=== PATIENT | female | born 1995 | race Caucasian/White ===

== ENCOUNTER 2018-11-10 17:33 | Emergency (ER) | payer OTHER ==
[~2018-11-10] VITALS: Ht 165.1 cm; Wt 104.3 kg
[2018-11-10 17:40] VITALS: BP 155/101
[2018-11-10] MEDS ORDERED: FLEXERIL PO (17:57)
[2018-11-10] MEDS ORDERED: IBUPROFEN 800800 M1 PO (17:57)
[2018-11-10] MEDS ORDERED: NORCO 5-325 TA1 EAC1 PO (17:57)
[2018-11-10] MEDS ORDERED: PERIDEX15 ML SWISH&SPIT (17:57)
== END 2018-11-10 18:10 | disposition home or self-care (01) ==
LOC: M.ERS 17:33
DX: K05.10 Chronic gingivitis, plaque induced (principal); M26.621 Arthralgia of right temporomandibular joint; F17.210 Nicotine dependence, cigarettes, uncomplicated; Z88.6 Allergy status to analgesic agent

== ENCOUNTER 2019-03-16 15:19 | Emergency (ER) | payer OTHER ==
[~2019-03-16] VITALS: Ht 165.1 cm; Wt 104.3 kg
[~2019-03-16 15:19] MED LIST: FLEXERIL PO; IBUPROFEN 800800 M1 PO; NORCO 5-325 TA1 EAC1 PO; PERIDEX15 ML SWISH&SPIT
[2019-03-16] MEDS ORDERED: IBUPROFEN 800800 M1 PO (16:13)
[2019-03-16] MEDS ORDERED: FLEXERIL PO (16:13)
[2019-03-16] MEDS ORDERED: NORCO 5-325 TA1 EAC1 PO (16:13)
[2019-03-16 16:49] VITALS: BP 124/75
== END 2019-03-16 16:50 | disposition home or self-care (01) ==
LOC: M.ERS 15:19
DX: S39.012A Strain of muscle, fascia and tendon of lower back, initial encounter (principal); F17.210 Nicotine dependence, cigarettes, uncomplicated; Z90.49 Acquired absence of other specified parts of digestive tract; Z98.890 Other specified postprocedural states; Z87.442 Personal history of urinary calculi; Z98.51 Tubal ligation status; Z88.6 Allergy status to analgesic agent; X58.XXXA Exposure to other specified factors, initial encounter; Y93.89 Activity, other specified; Y92.89 Other specified places as the place of occurrence of the external cause; Y99.8 Other external cause status

== ENCOUNTER 2019-07-29 01:24 | Emergency (ER) | payer OTHER ==
[~2019-07-29] VITALS: Ht 165.1 cm; Wt 104.3 kg
[2019-07-29 02:07] LABS: URINE BILIRUBIN NEGATIVE (Negative); URINE BLOOD NEGATIVE (Negative); URINE CLARITY CLEAR; URINE COLOR YELLOW; URINE GLUCOSE-RANDOM NEGATIVE (Negative); URINE KETONES NEGATIVE (Negative); URINE LEUKOCYTES-REFLEX NEGATIVE (Negative); URINE PROTEIN NEGATIVE (Negative); URINE SPECIFIC GRAVITY 1.025 (1.005-1.030); URINE UROBILINOGEN 0.2 E.U./dl (0.2-1.0)
[2019-07-29 02:09] LABS: URINE NITRITE-REFLEX POSITIVE (Negative)
[2019-07-29 02:32] LABS: SQUAMOUS 4-10 Moderate /LPF (0-3)
[2019-07-29 02:33] LABS: BACTERIA-REFLEX >30 Many /HPF (None Seen); CASTS None Seen /LPF (None Seen); CRYSTALS None Seen /LPF (None Seen); URINE RBC None Seen /HPF (0-2); URINE WBC-REFLEX 6-15 Few /HPF (0-5)
[2019-07-29] MEDS ORDERED: PYRIDIUM200 MG PO (02:51)
[2019-07-29] MEDS ORDERED: MACROBID 100 M100 M1 PO (02:51)
[2019-07-29] MEDS ORDERED: HYDROCODON-ACE1 EAC7 PO (02:51)
[2019-07-29 03:04] VITALS: BP 120/74
== END 2019-07-29 03:05 | disposition home or self-care (01) ==
LOC: M.ERS 01:24
PROVIDERS: Personal Emergency Response Attendant
DX: N39.0 Urinary tract infection, site not specified (principal); F17.210 Nicotine dependence, cigarettes, uncomplicated; Z90.49 Acquired absence of other specified parts of digestive tract; Z98.890 Other specified postprocedural states; Z98.51 Tubal ligation status; Z87.442 Personal history of urinary calculi; Z88.6 Allergy status to analgesic agent

== ENCOUNTER 2019-10-19 22:59 | Emergency (ER) | payer OTHER ==
[~2019-10-19] VITALS: Ht 165.1 cm; Wt 118.0 kg
[~2019-10-19 22:59] MED LIST changes: +HYDROCODON-ACE1 EAC7 PO; +MACROBID 100 M100 M1 PO; +PYRIDIUM200 MG PO
[2019-10-19 23:25] LABS: URINE BILIRUBIN NEGATIVE (Negative); URINE BLOOD NEGATIVE (Negative); URINE CLARITY CLEAR; URINE COLOR YELLOW; URINE GLUCOSE-RANDOM NEGATIVE (Negative); URINE KETONES NEGATIVE (Negative); URINE LEUKOCYTES-REFLEX NEGATIVE (Negative); URINE NITRITE-REFLEX NEGATIVE (Negative); URINE PROTEIN NEGATIVE (Negative); URINE UROBILINOGEN 0.2 E.U./dl (0.2-1.0)
[2019-10-20] MEDS ORDERED: BUPROPION HCL150 M1 PO (01:08)
[2019-10-20 01:17] VITALS: BP 110/50
--- NOTE | 2019-10-20 11:05 | EKG ---
[place] [address] ELECTROCARDIOGRAM REPORT Name: MAI ALVARENGA Room: [facility]#: [id number] Admission: 10/19/19 Attend Phys: Discharge: 10/20/19 Date of : [birth year] Date of Service: 10/19/195 Report #: [id number] THIS REPORT FOR: //name// 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1995 Requested By: Savana Yeager Order Number: [id number] Yesenia MD: Farrukh Willis Measurements Intervals [place] Rate: 94 P: 53 MS: 127 QRS: 75 QRSD: 89 T: 29 QT: 336 QTc: 421 Interpretive Statements Sinus rhythm Consider left atrial enlargement Baseline wander in lead(s) II,III,aVF No previous ECG available for comparison Electronically Signed On 10-20-2019 11:05:36 CDT by Farrukh Willis [email or web address] <ELECTRONICALLY SIGNED> By: Farrukh Willis MD, [facility] 10/20/19 1105 04 Farrukh Willis MD, [facility] /EPI
== END 2019-10-20 01:17 | disposition home or self-care (01) ==
LOC: M.ERS 22:59
PROVIDERS: Emergency Medicine
DX: F41.9 Anxiety disorder, unspecified (principal); Z20.828 Contact with and (suspected) exposure to other viral communicable diseases; R07.9 Chest pain, unspecified; R06.02 Shortness of breath; R11.2 Nausea with vomiting, unspecified; F17.210 Nicotine dependence, cigarettes, uncomplicated; Z90.49 Acquired absence of other specified parts of digestive tract; Z88.6 Allergy status to analgesic agent

== ENCOUNTER 2020-01-11 10:43 | Emergency (ER) | payer OTHER ==
[~2020-01-11] VITALS: Ht 165.1 cm; Wt 104.3 kg
[~2020-01-11 10:43] MED LIST changes: +BUPROPION HCL150 M1 PO
[2020-01-11] MEDS ORDERED: AMOXIL 875 MG875 M1 PO (12:17)
[2020-01-11 12:32] VITALS: BP 122/68
== END 2020-01-11 12:33 | disposition home or self-care (01) ==
LOC: M.ERS 10:43
DX: J02.0 Streptococcal pharyngitis (principal); Z20.828 Contact with and (suspected) exposure to other viral communicable diseases; F17.210 Nicotine dependence, cigarettes, uncomplicated; Z88.5 Allergy status to narcotic agent; Z98.51 Tubal ligation status; Z90.49 Acquired absence of other specified parts of digestive tract; Z98.890 Other specified postprocedural states; Z87.442 Personal history of urinary calculi

== ENCOUNTER 2020-03-24 19:48 | Emergency (ER) | payer OTHER ==
[~2020-03-24] VITALS: Ht 165.1 cm; Wt 108.9 kg
[~2020-03-24 19:48] MED LIST changes: +AMOXIL 875 MG875 M1 PO
[2020-03-24] MEDS ORDERED: DECADRON6 MG PO (20:46)
[2020-03-24] MEDS ORDERED: ZPAK PO (20:46)
[2020-03-24 20:50] VITALS: BP 145/69
== END 2020-03-24 20:50 | disposition home or self-care (01) ==
LOC: M.ERS 19:48
DX: U07.1 COVID-19 (principal); F17.210 Nicotine dependence, cigarettes, uncomplicated; Z90.49 Acquired absence of other specified parts of digestive tract; Z98.890 Other specified postprocedural states; Z98.51 Tubal ligation status; Z87.442 Personal history of urinary calculi

== ENCOUNTER 2020-05-09 15:27 | Emergency (ER) | payer OTHER ==
[~2020-05-09] VITALS: Ht 165.1 cm; Wt 104.3 kg
[~2020-05-09 15:27] MED LIST changes: +DECADRON6 MG PO; +ZPAK PO
[2020-05-09] MEDS ORDERED: APAP W/CODEINE1 TA2 PO (16:14)
[2020-05-09] MEDS ORDERED: IBUPROFEN 600600 M1 PO (16:55)
[2020-05-09 17:09] VITALS: BP 122/67
== END 2020-05-09 17:10 | disposition home or self-care (01) ==
LOC: M.ERS 15:27
DX: M25.511 Pain in right shoulder (principal); F17.210 Nicotine dependence, cigarettes, uncomplicated; Z98.890 Other specified postprocedural states; Z90.49 Acquired absence of other specified parts of digestive tract; Z87.442 Personal history of urinary calculi; Z88.5 Allergy status to narcotic agent; W01.198A Fall on same level from slipping, tripping and stumbling with subsequent striking against other object, initial encounter; Y93.89 Activity, other specified; Y92.89 Other specified places as the place of occurrence of the external cause; Y99.8 Other external cause status

== ENCOUNTER 2020-06-28 13:10 | Emergency (ER) | payer OTHER ==
[~2020-06-28] VITALS: Ht 165.1 cm; Wt 127.0 kg
[~2020-06-28 13:10] MED LIST changes: +APAP W/CODEINE1 TA2 PO; +IBUPROFEN 600600 M1 PO
[2020-06-28 13:26] LABS: ABSOLUTE BASOPHILS 0.1 thou/uL (0.0-0.2); ABSOLUTE EOSINOPHILS 0.1 thou/uL (0.0-0.7); ABSOLUTE LYMPHOCYTES 2.2 thou/uL (0.8-5.3); ABSOLUTE MONOCYTES 0.5 thou/uL (0.0-1.2); ABSOLUTE NEUTROPHILS 7.2 thou/uL (1.6-8.1); BASOPHILS 0.7 %; EOSINOPHILS 0.8 %; HEMATOCRIT 34.8 % (37.0-47.0); HEMOGLOBIN 11.1 gm/dL (12.0-15.0); LYMPHOCYTES 21.7 %; MCH 22.8 pg (26.0-34.0); MCHC 31.9 g/dL (28.0-37.0); MCV 71.4 fL (80.0-100.0); MPV 7.8 fl. (7.2-11.1); NUCLEATED RBCS 0 /100WBC; PLATELET COUNT* 360 thou/uL (150-400); POLYS 71.8 %; RBC 4.87 mil/uL (4.20-5.00); RDW-CV 19.1 % (10.5-14.5); WBC 10.1 thou/uL (4.0-11.0)
[2020-06-28 13:37] LABS: CALCIUM 8.7 mg/dL (8.5-10.1); CREATININE 0.9 mg/dL (0.6-1.3); POTASSIUM 3.4 mmol/L (3.5-5.1)
[2020-06-28 13:38] LABS: APTT 28.8 Seconds (25.0-31.3); PROTIME 10.7 Seconds (9.20-11.50)
[2020-06-28 13:50] LABS: ANISOCYTOSIS 1+; HYPOCHROMASIA 1+; MICROCYTES 1+
[2020-06-28 14:00] VITALS: BP 105/61
[2020-06-28 14:01] LABS: ALBUMIN 3.6 g/dL (3.4-5.0); CK-MB MASS 0.5 ng/mL (<0.5-3.6); MAGNESIUM 1.9 mg/dL (1.8-2.4); TOTAL BILIRUBIN 0.4 mg/dL (<0.1-1.0); TOTAL PROTEIN 8.1 g/dL (6.4-8.2)
--- NOTE | 2020-06-28 16:01 | EKG ---
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
== END 2020-06-28 14:00 | disposition home or self-care (01) ==
LOC: M.ERS 13:10
PROVIDERS: Family Medicine
DX: R07.89 Other chest pain (principal); R00.2 Palpitations; R06.02 Shortness of breath; R42 Dizziness and giddiness; R11.0 Nausea; F41.9 Anxiety disorder, unspecified; F32.9 Major depressive disorder, single episode, unspecified; F17.210 Nicotine dependence, cigarettes, uncomplicated; Z98.890 Other specified postprocedural states; Z90.49 Acquired absence of other specified parts of digestive tract; Z98.51 Tubal ligation status; Z88.5 Allergy status to narcotic agent

== ENCOUNTER 2020-09-24 13:45 | Emergency (ER) | payer OTHER ==
[~2020-09-24] VITALS: Ht 165.1 cm; Wt 127.0 kg
[2020-09-24 14:34] LABS: URINE BLOOD NEGATIVE (Negative); URINE CLARITY CLEAR; URINE COLOR YELLOW; URINE GLUCOSE-RANDOM NEGATIVE (Negative); URINE KETONES TRACE (Negative); URINE LEUKOCYTES-REFLEX NEGATIVE (Negative); URINE NITRITE-REFLEX NEGATIVE (Negative); URINE PROTEIN 1+ (Negative); URINE SPECIFIC GRAVITY >= 1.030 (1.005-1.030); URINE UROBILINOGEN 0.2 E.U./dl (0.2-1.0)
[2020-09-24 14:41] LABS: URINE BILIRUBIN 1+ (Negative)
[2020-09-24 14:42] LABS: ICTOTEST (BILI CONFIRMATORY) Negative (Negative)
[2020-09-24 14:57] LABS: ABSOLUTE BASOPHILS 0.1 thou/uL (0.0-0.2); ABSOLUTE EOSINOPHILS 0.2 thou/uL (0.0-0.7); ABSOLUTE LYMPHOCYTES 1.9 thou/uL (0.8-5.3); ABSOLUTE MONOCYTES 0.5 thou/uL (0.0-1.2); ABSOLUTE NEUTROPHILS 5.2 thou/uL (1.6-8.1); BASOPHILS 1.2 %; EOSINOPHILS 2.9 %; HEMATOCRIT 36.7 % (37.0-47.0); HEMOGLOBIN 11.7 gm/dL (12.0-15.0); LYMPHOCYTES 24.3 %; MCH 23.4 pg (26.0-34.0); MCHC 31.8 g/dL (28.0-37.0); MCV 73.5 fL (80.0-100.0); MONOCYTES 6.3 %; MPV 7.9 fl. (7.2-11.1); NUCLEATED RBCS 0 /100WBC; PLATELET COUNT* 334 thou/uL (150-400); POLYS 65.3 %; RDW-CV 18.3 % (10.5-14.5)
[2020-09-24 15:04] LABS: CALCIUM 9.3 mg/dL (8.5-10.1); CREATININE 0.8 mg/dL (0.6-1.3)
[2020-09-24 15:08] LABS: ALBUMIN 3.9 g/dL (3.4-5.0); TOTAL BILIRUBIN 0.3 mg/dL (<0.1-1.0); TOTAL PROTEIN 8.3 g/dL (6.4-8.2)
[2020-09-24] MEDS ORDERED: ZOFRAN ODT4 MG PO (16:16)
[2020-09-24] MEDS ORDERED: DICYCLOMINE HCL20 MG PO (16:16)
[2020-09-24] MEDS ORDERED: IBUPROFEN 800800 M1 PO (16:16)
[2020-09-24 16:29] VITALS: BP 119/62
== END 2020-09-24 16:30 | disposition home or self-care (01) ==
LOC: M.ERS 13:45
PROVIDERS: Nurse Practitioner Family
DX: N83.202 Unspecified ovarian cyst, left side (principal); K76.0 Fatty (change of) liver, not elsewhere classified; F17.210 Nicotine dependence, cigarettes, uncomplicated; Z90.49 Acquired absence of other specified parts of digestive tract; Z88.5 Allergy status to narcotic agent